=== PATIENT | female | born 1965 | race Caucasian/White ===

== ENCOUNTER 2016-10-24 20:42 | Emergency (ER) | payer BC ==
--- NOTE | ~2016-10-24 | CT55 ---
[facility] A Service of [facility] RADIOLOGY TEXT RESULTS PATIENT: TULIO COTTON LOCATION: SED : 61 UNIT #: [id number] AGE: [address]: Gamal Levy SEX: F ORDER DR: [id number] [address] [address] [id number] E MR#: [id number] Acc #: [id number] NAME: TULIO COTTON : 1965 SEX: F STUDY DATE/TIME: 10/24/2016 22:20 UNIT: SED ROOM: STUDY DESCRIPTION: CT Chest W Con Attending Physician: Gamal Levy P.A.-C. Ordering Physician: Gamal Levy P.A.-C. MEDICAL IMAGING REPORT This report is preliminary unless electronic signature is present. EXAM CT scan of the chest with contrast; 10/24/2016. HISTORY Left side chest and rib pain and left flank pain status post fall off steps stool today at [address] was performed through the chest following intravenous contrast administration. This CT exam was performed with one or more of the following radiation dose reduction techniques: automatic exposure control, adjustment of mA and/or kV according to patient size, and iterative reconstruction. FINDINGS There is minimal atelectasis in the right middle lobe and lingula. The lungs are otherwise clear. There is no significant thoracic adenopathy. The heart is normal in size. There are no pleural effusions. There is a 4.3 cm x 3.4 cm heterogeneous mass involving the left thyroid lobe. Recommend correlation with nonemergent thyroid ultrasound. Images of the upper abdomen are normal. IMPRESSION 4.3 cm heterogeneous mass involving the left thyroid lobe. Recommend nonemergent correlation with thyroid ultrasound. Otherwise negative chest CT. Dictated by... Drew Weston M.D. THIS IS AN ELECTRONICALLY VERIFIED REPORT [facility] A Service of [facility] RADIOLOGY TEXT RESULTS PATIENT: TULIO COTTON LOCATION: SED : 61 UNIT #: [id number] AGE: [address]: Gamal Levy SEX: F ORDER DR: Drew Weston M.D. at 10/26/2016 6:20 AM CARLOS/bill TD: 10/25/2016 16:39 JOB #: [id number] MEDICAL IMAGING REPORT Page 1 of 1
[2016-10-24] MEDS ORDERED: ZYRTEC (20:50)
[2016-10-24] MEDS ORDERED: CLIMARA 0.050.05 MG (20:50)
[2016-10-24] MEDS ORDERED: MULTIVITAMINS1 EAC3 (20:51)
[2016-10-24 21:42] LABS: URINE SOURCE CLEAN CATCH
[2016-10-24 21:44] LABS: BASOPHIL# 0.1 X10e3 (0-0.3); BASOPHIL% 0.9 % (0-2.5); EOSINOPHIL% 0.5 % (0.0-7.0); HEMATOCRIT 43.5 % (35.0-45.0); HEMOGLOBIN 14.5 gm/dL (12.0-16.0); LYMPHOCYTE# 2.6 X10e3 (1.0-3.5); LYMPHOCYTE% 27.8 % (17.0-45.0); MEAN CELL VOLUME 88.5 FL (83-96); MEAN CORPUSCULAR HEMOGLOBIN 29.5 PG (28-34); MEAN CORPUSCULAR HGB CONC 33.3 g/dL (30-36); MEAN PLATELET VOLUME 7.8 FL (6.5-11.5); MONOCYTE# 0.6 X10e3 (0-1.0); MONOCYTE% 6.3 % (3.0-12.0); NEUTROPHIL# 6.1 X10e3 (1.5-7.1); NEUTROPHIL% 64.5 % (40-75); PLATELET COUNT 268 X10e3 (140-420); RED BLOOD COUNT 4.92 X10e (3.90-5.30); WHITE BLOOD COUNT 9.5 X10e3 (4.0-10.5)
[2016-10-24 21:45] LABS: MICRO INDICATED? NO; URINE APPEARANCE CLEAR; URINE BILIRUBIN NEG (NEG); URINE BLOOD NEG (NEG); URINE COLOR YELLOW; URINE GLUCOSE NEG (NORM); URINE KETONE 1+ (NEG); URINE LEUKOCYTE ESTERASE NEG (NEG); URINE NITRATE NEG (NEG); URINE PROTEIN NEG (NEG); URINE SPECIFIC GRAVITY 1.015 (1.003-1.035); URINE UROBILINOGEN 0.2 MG/DL (NORM)
[2016-10-24 21:48] LABS: DIFF IND NO
[2016-10-24 22:12] LABS: ALBUMIN SERUM 4.6 g/dL (3.5-5.0); ALKALINE PHOSPHATASE 91 U/L (32-92); ALT (SGPT) 23 U/L (10-40); AST (SGOT) 22 U/L (10-42); BILIRUBIN,TOTAL 0.7 mg/dL (0.2-2.0); BLOOD UREA NITROGEN 20 mg/dL (9-23); BUN/CREATININE RATIO 33.33; CALCIUM SERUM 9.2 mg/dL (8.4-10.2); CARBON DIOXIDE 24 mmol/L (22-31); CHLORIDE 103 mmol/L (100-111); CREATININE SERUM 0.6 mg/dL (0.6-1.4); GLOM FILT RATE Estimated 104.1 mL/min (>60); GLUCOSE FASTING 91 mg/dL (70-110); POTASSIUM 3.4 mmol/L (3.5-5.1); PROTEIN TOTAL SERUM 7.5 g/dL (6.0-8.3); SODIUM 136 mmol/L (135-145)
[2016-10-24 22:13] LABS: BILIRUBIN, DIRECT <0.1 mg/dL (0.0-0.2); BILIRUBIN,INDIRECT 0.6 mg/dL (0.0-0.9)
== END 2016-10-24 23:16 | disposition home or self-care (01) ==
LOC: SED 20:42
PROVIDERS: Physician Assistant
DX: S20.212A Contusion of left front wall of thorax, initial encounter (principal); Z88.6 Allergy status to analgesic agent; W01.0XXA Fall on same level from slipping, tripping and stumbling without subsequent striking against object, initial encounter; Y92.009 Unspecified place in unspecified non-institutional (private) residence as the place of occurrence of the external cause
CPT/HCPCS: 36415; 71260; 80048; 80076; 81003; 85025; 96374; 96375; 99285; J1200; J2270; J2405; Q9967

== ENCOUNTER 2016-11-07 16:16 | Emergency (ER) | payer BC ==
[~2016-11-07] VITALS: Ht 161.3 cm; Wt 72.6 kg
--- NOTE | ~2016-11-07 | CR181 ---
[facility] A Service of [facility] RADIOLOGY TEXT RESULTS PATIENT: TULIO COTTON LOCATION: [facility] : 61 UNIT #: [id number] AGE: [address]: Alireza Kate MD SEX: F ORDER DR: [id number] [facility] [address] [place], [place] [address] [id number] E MR#: [id number] Acc #: [id number] NAME: TULIO COTTON : 1965 SEX: F STUDY DATE/TIME: 11/07/2016 18:26 UNIT: [facility] ROOM: STUDY DESCRIPTION: CR Lumbar Spine 2 or 3 Views Attending Physician: Alireza Kate M.D. Ordering Physician: Alireza Kate M.D. Primary Care Physician: No Primary Care Physician MEDICAL IMAGING REPORT This report is preliminary unless electronic signature is present EXAM Lumbar spine, 11/07/2016. HISTORY 51-year-old female with low back pain beginning this morning. No specific injury. Right leg numbness. COMPARISON None. FINDINGS Three views of the lumbar spine demonstrate no acute fracture or subluxation. Vertebral body heights and alignment are normally maintained. Mild disc space narrowing, L5-S1 and L4-L5. Mild multilevel facet degeneration. Sacrum and SI joints intact. IMPRESSION 1. No acute lumbar spine injury. 2. Mild disc space narrowing, L4-L5 and L5-S1. Mild multilevel facet degeneration. Dictated by... Hugo Arriola M.D. THIS IS AN ELECTRONICALLY VERIFIED REPORT Hugo Arriola M.D. at 11/08/2016 2:16 PM CEDRICK/karina TD: 11/08/2016 12:33 JOB #: [id number] MEDICAL IMAGING REPORT Page 1 of 1 COPY
[~2016-11-07 16:16] MED LIST: CLIMARA 0.050.05 MG; MULTIVITAMINS1 EAC3; ZYRTEC
== END 2016-11-07 19:40 | disposition home or self-care (01) ==
LOC: CED 16:16
DX: S39.012A Strain of muscle, fascia and tendon of lower back, initial encounter (principal); Z90.710 Acquired absence of both cervix and uterus; Z88.6 Allergy status to analgesic agent; X58.XXXA Exposure to other specified factors, initial encounter
CPT/HCPCS: 72100; 96372; 99283; J1170